=== PATIENT | female | born 1975 | race Caucasian/White ===

== ENCOUNTER → 2016-05-31 | Outpatient (CLI) | payer MEDICAID ==
[~2016-05-31] MED LIST: ACYC400T PO; ALBU8.5H INH; ASPI-557 PO; ATOR20TA59 PO; BACL10TA PO; BENZ1TAB7 PO; CARI6CAP PO; CYPR4TAB37 PO; HYDR-4072 PO; LAMO100T12 PO; LORA10CA3 PO; MELO15TA12 PO; PANT40TA27 PO; PREG100C PO
--- NOTE | 2016-05-31 13:18 | DI ---
Indication: ITS.REASON: M54.31 BACK PAIN WITH RIGHT-SIDED SCIATICA PROCEDURE: LUMBAR SPINE COMP W/O BEND: Encounter: Initial Comparison: None Findings: Alignment of the lumbar spine is within normal limits. There is transitional anatomy present. The spinous labeled with the T12 vertebra having hypoplastic ribs and partial sacralization of the L5 vertebra placing the iliac crests at the L4-L5 level. Vertebral body heights are maintained. The oblique views show no discrete pars defects. There is mild disk space narrowing at L3-L4 and L4-L5. Impression: No acute fracture. .
== END ==
LOC: IMA 12:20
PROVIDERS: ATTEND Nurse Practitioner Family
DX: M54.31 Sciatica, right side (principal); Z91.81 History of falling

== ENCOUNTER → 2016-07-22 | Outpatient (CLI) | payer MEDICAID ==
--- NOTE | 2016-07-22 09:59 | DI ---
Indication: ITS.REASON: M54.31 BACK PAIN RT SIDE PROCEDURE: MRI LUMBAR SPINE W/O CONTRAST: Encounter: Initial Comparison: Lumbar spine radiographs dated May 31, 2016 Technique: Multiplanar multisequence MR imaging of the lumbar spine was performed without contrast. Findings: Alignment of the lumbar spine is stable and within normal limits. Transitional anatomy is again noted. Spine is labeled similarly with a partially sacralized L5 vertebra. No acute fracture identified. Small Schmorl's nodes at L1 and L2. Conus medullaris terminates normally at L1. The paraspinal soft tissues are within normal limits. Segmental analysis: L1-L2: Normal L2-L3: Small central disk protrusion without focal central canal stenosis. Disk material extending slightly into the neural foramina resulting in mild inferior foraminal narrowing on the right. No significant left foraminal stenosis. L3-L4: No focal disk herniation or central canal stenosis. No neural foraminal stenosis. Possible annular tear in the anterior aspect of the disk. L4-L5: Minimal disk bulging without central canal stenosis. Mild degenerative facet change with mild bilateral neural foraminal stenosis. L5-S1: Normal Impression: Mild degenerative disk and facet disease as above. .
== END ==
LOC: IMA 08:29
PROVIDERS: ATTEND Nurse Practitioner Family
DX: M47.896 Other spondylosis, lumbar region (principal); M51.26 Other intervertebral disc displacement, lumbar region; M51.36 Other intervertebral disc degeneration, lumbar region